=== PATIENT | female | born 1975 | race Caucasian/White ===

== ENCOUNTER 2016-09-05 11:15 | Day surgery (SDC) | payer OTHER ==
[2016-09-05] VITALS (17 sets, daily range): BP systolic 107–144; BP diastolic 66–86; PULSE 53–86; RESP 11–22; Ht 157.5 cm; Wt 63.2 kg
[~2016-09-05] VITALS: Ht 157.5 cm; Wt 63.2 kg
[~2016-09-05 11:15] MED LIST: SUCCINYLCHOLINE CHLORIDE 100 MG/5 ML SYG IV ONE
[2016-09-05] MEDS ORDERED: SOD CHLORIDE 0.9% 1,000 ML IV SCH (11:30)
[2016-09-05] MEDS ORDERED: CEFAZOLIN 1 GM/50 ML (PMX) 50 ML IVPB ONE (11:30)
[2016-09-05] MEDS ORDERED: NEOSTIGMINE 3 MG/3 ML SYRINGE ONE (11:45)
[2016-09-05] MEDS ORDERED: FENTAnyl 50 MCG/ML VIAL ONE ×2 (11:45→18:19)
[2016-09-05] MEDS ORDERED: PROPOFOL 20 ML ONE (11:45)
[2016-09-05] MEDS ORDERED: MIDAZOLAM 1 MG/ML 2 ML INJ ONE (11:45)
[2016-09-05] MEDS ORDERED: LIDOCAINE 2% (SDV) 5 ML INJ ONE (11:45)
[2016-09-05] MEDS ORDERED: GLYCOPYRROLATE 0.4 MG INJ ONE (11:45)
[2016-09-05] MEDS ORDERED: DEXAMETHASONE 4 MG/ML 1 ML INJ ONE (11:45)
[2016-09-05] MEDS ORDERED: ROCURONIUM 50 MG INJ ONE (11:45)
[2016-09-05] MEDS ORDERED: ONDANSETRON 4 MG INJ ONE ×2 (11:46→18:19)
[2016-09-05] MEDS ORDERED: CEFAZOLIN 1 GM INJ ONE (11:48)
--- NOTE | 2016-09-05 13:20 | HPN ---
Date/Time of Note Date/Time of Note DATE: 09/05/16 TIME: 13:20 Interval H&P Admission Note Pt. seen H&P reviewed: No system changes YINKA BUCK MD September 05, 2016 13:20
[2016-09-05] MEDS ORDERED: BUPIVACAINE LIPOSOME/PF 266 MG/20 ML VIAL INFIL SCH (13:30)
[2016-09-05] MEDS ORDERED: BUPIVACAINE 0.5%/EPI (SDV) 30 ML INJ ONE (13:38)
[2016-09-05] MEDS ORDERED: POLYMYXIN/BACITRACIN 1L IRRIG ONE ×2 (13:38→16:51)
[2016-09-05] MEDS ORDERED: EPINEPHrine 0.1 MG/ML SYG ONE (13:38)
[2016-09-05] MEDS ORDERED: EXPAREL NOTE (BUPIVICAINE LIPOSOMAL) XX SCH (14:00)
--- NOTE | 2016-09-05 14:48 | OPR ---
Date/Time of Note Date/Time of Note DATE: 09/05/16 TIME: 14:31 Operative Report Free Text/Dictation Plastic Surgery Operative Report Preoperative diagnosis: BRCA gene mutation Postoperative diagnosis: same Procedure: bilateral immediate breast reconstruction with implants and alloderm Surgeon:komal Hannon.:n/a Anesthesia:gen EBL:min IV fluids: 1L Findings:n/a Complications: none Dispo:floor Indications for procedure : 41 yo F patient presents for direct to implant bilatera breast reconstruction. The risks, benefits, and alternatives of performing this procedure were discussed with the patient including the risks of bleeding, infection, wound healing problems, extrusion, pain and tightness, need for removal. We discussed that if radiation is involved, it may alter the outcome. The risk of asymmetry and need for revision surgery were also discussed. The patient states that she understands these risks and would like to proceed with the procedure. All questions were answered, no guarantees were given with regards the outcome of this procedure. Description of procedure: The patient was brought to the operating room at [facility] where general anesthesia was induced, and the patient was prepped and draped in the usual sterile fashion. The bilateral mastectomy was performed by Dr. Estrada and will be dictated separately. At the completion of that portion of the case, I scrubbed into the case, and irrigated the breasts with extensive antibiotic irrigation to remove all loose fat particles. Next, meticulous hemostasis was achieved with the bipolar cautery. An additional round of irrigation and hemostasis was carried out. Next, the right breast was inspected, and the prior implant capsule was incised and the implant was removed. It was 450cc saline. Next, the pocket was inspected. The existing capsule was thin and atrophic and would not contribute significantly to the support of the implant. Therefore, a piece of AlloDerm, contour large was opened, rinsed in normal saline, it was anchored in place medially, inferiorly, and laterally to re-create the border of the breasts. This was anchored with 2-0 Vicryl suture. Next, the existing capsule was removed. A superior capsulotomy was carried out, and then an Allergan 615cc implant sizer was opened, rinsed in antibiotic irrigation, and was inserted into the right breast. This appeared to give the desired appearance. The sizer was removed, the breast was irrigated with antibiotic irrigation, hemostasis was achieved with electrocautery, attention was turned to the contralateral breast where a similar procedure was carried out. Next, the left breast was inspected, and the prior implant capsule was incised and the implant was removed. It was 450cc saline. Next, the pocket was inspected. The existing capsule was thin and atrophic and would not contribute significantly to the support of the implant. Therefore, a piece of AlloDerm, contour large was opened, rinsed in normal saline, it was anchored in place medially, inferiorly, and laterally to re-create the border of the breast. This was anchored with 2-0 Vicryl suture. Next, the existing capsule was removed. A superior capsulotomy was carried out, and then an Allergan 615cc implant sizer was opened, rinsed in antibiotic irrigation, and was inserted into the left breast. This appeared to give the desired appearance. The sizer was removed. The breasts are irrigated with antibiotic irrigation, hemostasis was achieved with electrocautery. Gloves were changed. An allergan SCX 615cc implant SN [id number] was opened, rinsed in antibiotic irrigation, and was inserted into the right breast with minimal touch technique. The right pectoralis muscle was sutured to the AlloDerm to close the pocket. The sizer was reinserted to the left breast. The towel clips were placed to close the breast. The patient was sat up on the operating table. The breasts were symmetric. Therefore, the patient was sat back down. Gloves were changed again. An allergan SCX 615cc implant SN [id number] was opened, rinsed in antibiotic irrigation, and was inserted into the left breast with minimal touch technique. The left pectoralis muscle was sutured to the AlloDerm to close the pocket. The breasts were irrigated with antibiotic irrigation, hemostasis was achieved with electrocautery. The breasts were inspected one final time and was found to be symmetric. Therefore, to x 15 Boom drains were placed into each axilla laterally through stab incisions and was secured with 2-0 nylon sutures. The skin was then closed with 3-0 Vicryl suture and 4-0 Monocryl suture. A Premia dressing was placed on each breast. Tegaderm was placed on each breast. The patient tolerated procedure well, there were no complications. piece of AlloDerm contour medium was opened, rinsed in normal saline to remove the preservative, and was anchored in place medially, inferiorly, and laterally to re-create the lower border of the breast with 2-0 Vicryl suture. Next, the cautery was used to enter the lateral border of the subpectoral space, and then the pectoralis muscle was elevated from lateral to medial on its inferior surface, and was released inferiorly. The base width was then measured and was found to be approximately cm. Therefore, an tissue porter baggage was opened, rinsed in antibiotic irrigation, the air was evacuated, and then gloves were changed and this was inserted into the breast and was sutured in place with 2-0 Vicryl suture. Next, a total of cc of sterile saline was injected into the porter baggage. Finally, the pectoralis muscle was anchored to the AlloDerm, and then an additional round of hemostasis and irrigation was carried out. cc of a dilute exparel solution was injected around the breast, and 2 x 15 Boom drains were inserted through a stab incision in the axilla and were secured in place with 2-0 nylon suture. The breast was then closed with 3-0 Vicryl suture and 4-0 Monocryl suture and was dressed with Dermabond, Tegaderm, and an ABD. the patient tolerated this procedure well, there were no complications, she will remain tonight. YINKA BUCK MD September 05, 2016 14:48
[2016-09-05] MEDS ORDERED: POLYMYXIN/BACITRACIN 1L IRRIG IRR ONE (15:30)
--- NOTE | 2016-09-05 16:07 | OPR ---
DATE OF OPERATION: 09/05/2016 PREOPERATIVE DIAGNOSIS: BRCA1 positive mutation, need for bilateral prophylactic mastectomy. POSTOPERATIVE DIAGNOSIS: BRCA1 positive mutation, need for bilateral prophylactic mastectomy. PROCEDURE: Bilateral prophylactic mastectomy with immediate reconstruction. SURGEON: Get Estrada MD, surgical oncologist, and Dr. Mcdowell, plastic surgeon. CIRCULAR SAWYER STONE: None. INDICATIONS FOR PROCEDURE: The patient is an unfortunate 41-year-old female with a strong family hi story of breast cancer, who underwent BRCA testing and was found to be positive for mutation of BRCA 1 gene. She was counseled as to the risks versus benefits of bilateral prophylactic mastectomy. owen consented and was scheduled for surgery. DESCRIPTION OF PROCEDURE: The patient was brought to the operating theater, placed under general en dotracheal tube anesthesia. The breast and axillary regions were prepped and draped in the usual st erile fashion. The right breast had been previously marked by the plastic surgeon, Dr. Mcdowell, in t erms of an elliptical incision including the nipple areolar complex and a portion of the overlying s kin of the breast. It was carried out with 15 blade scalpel. Subcutaneous tissue was dissected wit h cautery. The skin edges were elevated with [place] clamps and skin flaps were created with ca utery, first superiorly to the clavicle, then medially to the sternal border, inferiorly to the infr amammary fold and laterally until the latissimus dorsi muscle was identified throughout its course. Mastectomy then took place from medial to lateral using cautery. At the border of the pectoralis m ajor muscle, the pectoralis minor muscle was identified. The tail of the breast was transected. Th e specimen was oriented and sent for permanent pathologic analysis. There was some additional breas t tissue adherent to the pectoralis major muscle, which was resected separately and sent separately for pathologic analysis. Warm saline soaked lap pads were then placed into the cavity. Attention w as then directed to the left breast. Again, the previously marked incision was identified and incis ed with 15 blade scalpel. Subcutaneous tissue was dissected with cautery. Skin edges were elevated with skin hooks and skin flaps were created with cautery, first superiorly to the clavicle, then me dially to the sternal border, inferiorly to the inframammary fold and laterally until the latissimus dorsi muscle was identified throughout its course. Mastectomy then took place from medial to later al using cautery, taking great care to remove all of the breast tissue. At the border of the pector caterina major muscle, the pectoralis minor muscle was identified and the tail of the breast was transec renetta. The specimen was oriented and sent for permanent pathologic analysis. At this point, Dr. Kelle parekh entered the room and took over control of the operation. He proceeded with bilateral implant rec onstruction and he will dictate that portion of the operation separately. Total blood loss for Dr. Estrada' portion of the operation was approximately 50 mL. There were no complications. Dictated By: GET STONER/IVVEK Conf#: [id number] DID#: [id number]
[2016-09-05] MEDS: LACTATED RINGER'S 1,000 ML IV SCH ×2 (18:23→20:30)
[2016-09-05] MEDS ORDERED: ACETAMINOPHEN 325 MG TAB PO PRN (18:30)
[2016-09-05] MEDS ORDERED: HYDROCODONE/APAP (10/325) TAB PO PRN (18:30)
[2016-09-05] MEDS ORDERED: DIPHENHYDRAMINE 50 MG INJ IV PRN (18:30)
[2016-09-05] MEDS ORDERED: MEPERIDINE 25 MG INJ IV PRN (19:00)
[2016-09-05] MEDS ORDERED: morphine (1 MG/ML) 10ML SYRINGE IV PRN ×3 (19:00)
[2016-09-05] MEDS ORDERED: hydrALAzine 20 MG INJ IV PRN (19:00)
[2016-09-05] MEDS ORDERED: FENTAnyl 50 MCG/ML VIAL IV PRN ×2 (19:00)
[2016-09-05] MEDS ORDERED: METOCLOPRAMIDE 10 MG INJ IV PRN (19:00)
[2016-09-05] MEDS ORDERED: ONDANSETRON 4 MG INJ IV PRN (19:00)
[2016-09-05] MEDS ORDERED: LABETALOL HCL 20MG INJ IV PRN (19:00)
[2016-09-05] MEDS ORDERED: HYDROmorphONE (0.2 MG/ML) 10ML SYG IV PRN ×3 (19:00)
--- NOTE | 2016-09-05 20:38 | RADRPT ---
Vent Rate: 57 bpm RR Interval: 0 msec CO Interval: 152 msec QRS Duration: 86 msec QT Interval: 422 msec QTC Interval: 410 msec P-R-T [place]: 32 - 64 - 44 degrees Sinus bradycardia with sinus arrhythmia Otherwise normal ECG Electronically Signed By: Julio Chisholm [id number]
[2016-09-05] MEDS: HYDROCODONE/APAP (10/325) TAB PO PRN (21:32)
[2016-09-05] MEDS: CEFOTAXIME 1 GM/50 ML (PMX) 50 ML IVPB SCH (21:32)
[2016-09-05] MEDS: HYDROmorphONE 1 MG/ML SYG IV PRN (23:55)
[2016-09-06] MEDS: HYDROmorphONE 1 MG/ML SYG IV PRN ×3 (03:22→17:17)
[2016-09-06] MEDS: CEFOTAXIME 1 GM/50 ML (PMX) 50 ML IVPB SCH ×2 (05:15→10:15)
[2016-09-06] MEDS: LACTATED RINGER'S 1,000 ML IV SCH (05:15)
--- NOTE | 2016-09-06 06:47 | PN ---
Date/Time of Note Date/Time of Note DATE: 09/06/16 TIME: 06:46 Assessment/Plan Lines/Catheters IV [facility] (from [facility]): Peripheral IV Assessment/Plan Chief Complaint/Hosp Course doing well discharge to home today patient has Rx and instructions Problems: Subjective 24 Hr Interval Summary no acute events overnight Exam/Review of Systems Vital Signs Vitals Vital Signs Date Time Temp Pulse Resp B/P Pulse Ox O2 Delivery O2 Flow Rate FiO2 09/05/16 20:29 97.4 78 18 143/68 98 09/05/16 19:37 Nasal Cannula Intake and Output 09/05/16 09/05/16 09/06/16 15:00 23:00 07:00 Intake Total 1810 ml 1400 ml Output Total 175 ml 189 ml Balance 1635 ml 1211 ml Exam Free Text/Dictation bilateral breast incisions intact, no hematoma. flaps soft and viable YINKA BUCK MD September 06, 2016 06:46
--- NOTE | 2016-09-06 06:48 | DS ---
Date/Time of Note Date/Time of Note DATE: 09/06/16 TIME: 06:47 Discharge Summary Admission/Discharge Info Admit Date/Time September 05, 2016 at 18:28 Discharge Date/Time 09/06 @ 1530 Final Diagnosis BRCA gene positive Patient Condition: Good Procedures bilateral mastectomy and implant recon Hospital Course doing well discharge to home today patient has Rx and instructions Home Meds Unable to Obtain Active Prescriptions or Reported Meds Primary Care Provider YINKA Walker MD September 06, 2016 06:48
[2016-09-06 07:15] VITALS: BP 113/65; RESP 18
[2016-09-06] MEDS: HYDROCODONE/APAP (10/325) TAB PO PRN ×2 (07:42→13:40)
== END 2016-09-06 18:20 | disposition home or self-care (01) ==
LOC: SDS 11:15 → UNDOADMIN 18:28 → MS2 18:28 → SDS 20:30 → UNDODISIN 09-06 18:20
PROVIDERS: ATTEND Surgery Plastic and Reconstructive Surgery
DX: Z40.01 Encounter for prophylactic removal of breast (principal); F41.9 Anxiety disorder, unspecified; Z80.3 Family history of malignant neoplasm of breast; Z15.01 Genetic susceptibility to malignant neoplasm of breast
CPT/HCPCS: 19303; 19340; 88307; 93005; C1789; C9290; J0690; J0698; J1100; J1170; J2175; J2250; J2405; J2710; J3010; J7120; J7999; Z7512; Z7610; J0171

== ENCOUNTER 2017-04-30 13:54 | Observation (INO) | END 2017-05-01 13:25 | disposition home or self-care (01) ==